=== PATIENT | female | born 1975 ===

== ENCOUNTER 2016-11-17 10:05 | Day surgery (SDC) | payer OTHER ==
[~2016-11-17] VITALS: Ht 152.4 cm; Wt 120.2 kg
[~2016-11-17 10:05] MED LIST: AMBIEN10 MG PO; GABAPENTIN600 MG PO; IBUPROFEN400 MG PO; METHOCARBAMOL750 MG PO; NORTRIPTYLINE H50 MG PO; OMEPRAZOLE20 M1 PO; PERCOCET1 TA2 PO
--- NOTE | 2016-11-17 10:24 | NUR ---
PT IDENTIFIED & HERE WITH HER MOTHER MELCHOR FOR HER PROCEDURE TODAY, MELCHOR WILL BE HIS HEALTH AND SOCIAL CARE TEACHER HOME POST OP. PREOP & SAFETY INFO REVIEWED WITH PT UNDERSTANDING NOTED PER PT MOTHER AT BEDSIDE SIDE RAILS UP, PT RESTING
--- NOTE | 2016-11-17 10:47 | NUR ---
IV ACCESS STARTED PER CANDI WITHOUT COMPLICATIONS IN PTS RFA AREA. 22G SIDE RAILS UP, MOTHER AT BEDSIDE & PT READY FOR TRANSPORT TO PREOP HOLDING.
[2016-11-17] MEDS ORDERED: LORAZEPAM1 MG PO (10:59)
--- NOTE | 2016-11-17 15:13 | NUR ---
TEARFUL ON ARRIVAL TO PACU, STATED "I NEED SOMETHING FOR ANXIETY, I CAN'T BREATH, I NEED A BAG TO GIT SICK IN". RESPIRATORY RATE 20 AT THIS TIME, SAO2 100% ON RA, ENCOURAGED TO TAKE DEEP SLOW BREATHS IN AND TO BREATH OUT. MIDAZOLAM GIVE 0.5MG IV x 3 DOSES, REPORTS FEEL A LITTLE LESS ANXIOUS. NAUSEA SUBSIDED.
--- NOTE | 2016-11-17 15:28 | Provider's Discharge Care Plan ---
Problem, Goal, Plan Problem List 1. Dysphagia
--- NOTE | 2016-11-17 15:28 | Provider's Discharge Care Plan ---
Problem, Goal, Plan Problem List 1. Dysphagia
[2016-11-17 16:44] VITALS: BP 167/75
--- NOTE | 2016-11-17 17:08 | NUR ---
PT IS AWAKE AND ALERT UPON ARRIVAL TO SCU. PT DENIES PAIN. NAUSEA IS RELIEVED AFTER QUESE EASE INHALATION. VSS. POST-OP INSTRUCTIONS GIVEN. QUESTIONS ENCOURAGED AND ANSWERED. PT AND HER MOTHER VERBALIZED UNDERSTANDING. PT D/C HOME AMBULATORY ACCOMPANIED BY HER MOTHER.
== END 2016-11-17 17:13 | disposition home or self-care (01) ==
LOC: OR SRH 10:05 → SCU SRH 10:05 → OR SRH 10:15
PROVIDERS: Surgery
PROC: 0DB38ZX Excision of Lower Esophagus, Via Natural or Artificial Opening Endoscopic, Diagnostic (ICD-10-PCS; principal; 2016-11-17 12:00)
PROC: 0DB68ZX Excision of Stomach, Via Natural or Artificial Opening Endoscopic, Diagnostic (ICD-10-PCS; principal; 2016-11-17 12:00)
DX: R13.10 Dysphagia, unspecified (principal); K21.9 Gastro-esophageal reflux disease without esophagitis
CPT/HCPCS: 29229; 29240; 50004; 60001; 70002; 80102; 82943; 83526; 90705